=== PATIENT | female | born 1985 | race Caucasian/White ===

== ENCOUNTER 2019-01-10 21:39 | Emergency (ER) | payer MEDICAID ==
[~2019-01-10] VITALS: Ht 160 cm; Wt 97.7 kg
[2019-01-10] MEDS: RHOGAM FROM BLOOD BANK 1 NOTE EA IM/IV ONE (22:00)
[2019-01-10 22:08] LABS: BASOPHILS # (AUTO) 0.07 x10^3/uL (0-0.1); BASOPHILS % (AUTO) 1 % (0-1); EOSINOPHILS % (AUTO) 2 % (1-7); LYMPHOCYTES # (AUTO) 3.16 x10^3/uL (1-3.4); LYMPHOCYTES % (AUTO) 34 % (22-44); MD NO; MEAN CORPUSCULAR HEMOGLOBIN 30.9 pg (27.0-34.8); MEAN CORPUSCULAR HGB CONC 33.6 g/dL (32.4-35.8); MONOCYTES # (AUTO) 0.76 x10^3/uL (0.2-0.8); MONOCYTES % (AUTO) 8 % (2-9); NEUTROPHILS # (AUTO) 5.26 x10^3/uL (1.8-6.8); NEUTROPHILS % (AUTO) 56 % (42-75); PLATELET COUNT 229 x10^3/uL (130-400); RED BLOOD COUNT 4.84 x10^6/uL (3.82-5.3)
--- NOTE | 2019-01-10 22:21 | NUR ---
first contact with pt. pt states + test recently. Lmp start 12/09. C/o vb since 1699 this pm and LLQ and LRQ abd pain. pt's aox4. resps even and unlabored. a1. bp/spo2 monitors in place. call light within reach. edmd at bedside to assess at this time.
--- NOTE | 2019-01-10 23:10 | NUR ---
PT AMB TO BR AND BACK TO ROOM WITH STEADY GAIT. UA SENT.
[2019-01-10 23:20] LABS: MICROSCOPIC NOT IND
[2019-01-10 23:28] LABS: CULTURE INDICATED? NO
[2019-01-10 23:58] VITALS: BP 107/66
--- NOTE | 2019-01-11 00:06 | NUR ---
PT GIVEN RHOGAM PER EMAR. PT TOLERATED WELL.
[2019-01-11 00:18] VITALS: BP 109/64
[2019-01-11 00:21] VITALS: BP 111/69
--- NOTE | 2019-01-11 00:22 | NUR ---
PT GIVEN DC INSTRUCTIONS. PT'S AOX4. RESPS EVEN AND UNLABORED. PT AMB TO DC WITH STEADY GAIT. NO ACUTE DISTRESS AT DC.
== END 2019-01-11 00:22 | disposition home or self-care (01) ==
LOC: ED 22:54
DX: O03.9 Complete or unspecified spontaneous abortion without complication (principal)
CPT/HCPCS: 36415; 81003; 84702; 85025; 86850; 86900; 96372; 99283; J2790